=== PATIENT | female | born 1950 | race African-American/Black ===

== ENCOUNTER 2020-09-03 11:09 | Day surgery (SDC) | payer OTHER ==
[2020-08-30 13:12] VITALS: BMI 47.8
[2020-09-03] MEDS ORDERED: MORPHINE SULFATE 10 MG/1 ML *VIAL ONE (12:57)
[2020-09-03] MEDS ORDERED: SUCCINYLCHOLINE CHLORIDE 200 MG/10 ML SYRINGE ONE (13:26)
[2020-09-03] MEDS ORDERED: PROPOFOL 20 ML ONE ×3 (13:26→13:56)
[2020-09-03] MEDS ORDERED: LIDOCAINE HCL/PF 2% SDV 5ML VIAL ONE (13:30)
[2020-09-03] MEDS ORDERED: DEXAMETHASONE SOD PHOSPHATE 4 MG/1 ML VIAL ONE (13:36)
[2020-09-03] MEDS ORDERED: ONDANSETRON 4 MG/2 ML VIAL ONE ×2 (13:36→14:42)
[2020-09-03] MEDS ORDERED: ceFAZolin SODIUM 1 GM VIAL ONE (13:36)
[2020-09-03] MEDS ORDERED: KETOROLAC TROMETHAMINE 30 MG/1 ML VIAL ONE (13:36)
[2020-09-03] MEDS ORDERED: EPHEDRINE SULFATE/0.9% NACL/PF 50 MG/10 ML SYRINGE NR ONE (13:46)
[2020-09-03] MEDS ORDERED: oxyCODONE HCL 5 MG TABLET PO PRN ×2 (14:27)
[2020-09-03] MEDS ORDERED: ONDANSETRON 4 MG/2 ML VIAL IVPUSH PRN (14:27)
[2020-09-03] MEDS ORDERED: PROMETHAZINE HCL 25 MG/1 ML VIAL IVPUSH PRN (14:27)
[2020-09-03 15:53] VITALS: TEMP 97.7
[2020-09-03 17:07] VITALS: BP 130/65; PULSE 57
== END 2020-09-03 17:07 | disposition home or self-care (01) ==
LOC: EDBD → FASU 11:09 → EDBD 13:30 → FASU 17:07
PROVIDERS: ATTEND Orthopaedic Surgery
PROC: 0SBD4ZZ Excision of Left Knee Joint, Percutaneous Endoscopic Approach (ICD-10-PCS; 2020-09-03)
PROC: 0SND4ZZ Release Left Knee Joint, Percutaneous Endoscopic Approach (ICD-10-PCS; 2020-09-03)
PROC: 0SBD4ZZ Excision of Left Knee Joint, Percutaneous Endoscopic Approach (ICD-10-PCS; principal; 2020-09-03 13:55)
DX: S83.282A Other tear of lateral meniscus, current injury, left knee, initial encounter (principal); S83.242A Other tear of medial meniscus, current injury, left knee, initial encounter; M23.8X2 Other internal derangements of left knee; M65.862 Other synovitis and tenosynovitis, left lower leg; M25.662 Stiffness of left knee, not elsewhere classified; E66.01 Morbid (severe) obesity due to excess calories; I10 Essential (primary) hypertension; X58.XXXA Exposure to other specified factors, initial encounter; Y92.9 Unspecified place or not applicable; Y93.9 Activity, unspecified
CPT/HCPCS: 88304-TC; 94760

== ENCOUNTER 2023-12-21 09:45 | Day surgery (SDC) | payer OTHER, BC ==
[2023-12-14 12:37] VITALS: BMI 48.4
[2023-12-21 10:05] VITALS: TEMP 97
[2023-12-21 12:25] VITALS: RESP 18
[2023-12-21 12:28] VITALS: BP 141/68; PULSE 76
== END 2023-12-21 12:44 | disposition home or self-care (01) ==
LOC: FASU-ENDO 09:45
PROVIDERS: ATTEND Internal Medicine Gastroenterology
PROC: 0DB98ZX Excision of Duodenum, Via Natural or Artificial Opening Endoscopic, Diagnostic (ICD-10-PCS; 2023-12-21)
PROC: 0DB68ZX Excision of Stomach, Via Natural or Artificial Opening Endoscopic, Diagnostic (ICD-10-PCS; 2023-12-21)
PROC: 0DBC8ZX Excision of Ileocecal Valve, Via Natural or Artificial Opening Endoscopic, Diagnostic (ICD-10-PCS; principal; 2023-12-21 11:17)
DX: Z12.11 Encounter for screening for malignant neoplasm of colon (principal); K29.70 Gastritis, unspecified, without bleeding; Z86.010 Personal history of colon polyps; Z83.719 Family history of colon polyps, unspecified; R12 Heartburn; Z98.0 Intestinal bypass and anastomosis status
CPT/HCPCS: 88305-TC; 88342-TC